=== PATIENT | female | born 1995 | race Caucasian/White ===

== ENCOUNTER 2018-07-29 09:53 | Outpatient (RCR) | payer MEDICAID, BC, SELFPAY ==
--- NOTE | 2018-07-29 09:54 | COCO.VHC ---
New/Renewal Application Status: New Application Submitted?: Yes (pc to [facility]) #:: [phone] Notes:: We called in because Ranjana submitted a application on her own and itr said pending. We called the [facility] and Ranjana is already attached to another application. They deleted out the new application and updated the active one. She does qualify foe dr brooke because she is currently .
--- NOTE | 2018-07-29 09:57 | PDOC.VHC_ITS ---
New/Renewal Application Status: New Application Submitted?: [facility] #:: [phone] Notes:: We called in because Ranjana submitted a application on her own and itr said pending. We called the [facility] and Ranjana is already attached to another application. They deleted out the new application and updated the active one. She does qualify foe dr brooke because she is currently .
== END 2018-08-26 23:59 | disposition home or self-care (01) ==
LOC: COCO 09:53
PROVIDERS: PCP Nurse Practitioner Family; Visit Provider Nurse Practitioner Family
DX: R69 Illness, unspecified (principal)

== ENCOUNTER 2018-08-05 09:39 | Outpatient (CLI) | payer MEDICAID, SELFPAY | END 2018-08-05 09:59 | PROVIDERS: PCP Nurse Practitioner Family; Visit Provider Nurse Practitioner Women's Health | DX: Z32.01 Encounter for pregnancy test, result positive (principal) | CPT/HCPCS: 36415; 84702 ==

== ENCOUNTER 2018-09-02 11:22 | Outpatient (CLI) | payer MEDICAID, SELFPAY ==
[2018-09-02 12:18] LABS: Abs Immature Grans 0.04 k/cumm (0.0-0.09); Absolute Basophil Count 0.03 k/cumm (0.0-0.2); Absolute Eosinophil Count 0.26 k/cumm (0.0-0.7); Absolute Lymphocyte Count 2.87 k/cumm (1.2-3.4); Absolute Monocyte Count 0.91 k/cumm (0.11-0.7); Basophils % 0.3; Eosinophils % 2.4; HCT 39.7 % (36.0-46.0); HGB 14.3 g/dL (12.0-15.5); Immature Grans % 0.4; Lymphocytes % 26.8; Mean Corpuscular Hemoglobin 31.1 pg (27.0-33.0); Mean Corpuscular Volume 86.3 fL (80-95); Mean Platelet Volume 11.8 fL (8.0-11.0); Monocytes % 8.5; Neutrophils % 61.6; Platelet Count 194 x1000/uL (130-400); RBC Distribution Width 12.1 % (11.7-14.6); White Blood Cell Count 10.71 k/cumm (4.4-10.8)
[2018-09-03 10:43] LABS: HIV-1/2 Ag & Ab Screen Negative (NEGAT)
[2018-09-03 11:25] LABS: Hepatitis C Ab w Rflx HCV PCR Negative (NEGAT)
[2018-09-05 10:16] LABS: Hepatitis B Surface Ag Negative (NEGAT)
[2018-09-05 10:55] LABS: Varicella IgG Antibody Positive
[2018-09-05 10:57] LABS: Syphilis Serology (RPR) Negative (Negative)
[2018-09-05 11:14] LABS: Rubella IgG Ab (UVM) Negative
== END 2018-09-02 11:42 ==
PROVIDERS: PCP Nurse Practitioner Family; Visit Provider Advanced Practice Midwife
DX: Z34.91 Encounter for supervision of normal pregnancy, unspecified, first trimester (principal); Z11.59 Encounter for screening for other viral diseases; Z11.4 Encounter for screening for human immunodeficiency virus [HIV]; Z01.84 Encounter for antibody response examination
CPT/HCPCS: 36415; 80055; 86787; 86803; 86850; 86900; 86901; 87340; 87389; 86592; 86762; 86870; 86902

== ENCOUNTER 2018-09-02 11:53 | Outpatient (REF) | payer MEDICAID, SELFPAY ==
[2018-09-02 14:11] LABS: *AMPHETAMINES SCREEN URINE Negative (Negative); *BARBITURATES SCREEN URINE Negative (Negative); *BENZODIAZEPINES SCREEN URINE Negative (Negative); Cannabinoids THC Negative (Negative); Cocaine Screen,Urine Negative (Negative); METHADONE URINE SCREEN POSITIVE (Negative); OPIATES URINE SCREEN Negative (Negative); Tricyclic Antidepressants Negative (Negative)
[2018-09-05 14:23] LABS: Chlamydia Result Negative; GC Result Negative; Specimen Description CERVIX
[2018-09-08 12:05] LABS: Buprenorphine Negative; Norbuprenorphine Negative
== END 2018-09-02 12:13 ==
LOC: LBN 11:53
PROVIDERS: PCP Nurse Practitioner Family; Visit Provider Advanced Practice Midwife
DX: Z34.91 Encounter for supervision of normal pregnancy, unspecified, first trimester (principal); Z11.3 Encounter for screening for infections with a predominantly sexual mode of transmission
CPT/HCPCS: 80307; 87491; 87591; 87086; 87480; 87510; 87660

== ENCOUNTER 2018-09-07 09:55 | Outpatient (CLI) | payer MEDICAID, SELFPAY | END 2018-09-07 10:15 | PROVIDERS: PCP Nurse Practitioner Family; Visit Provider Advanced Practice Midwife | DX: Z34.91 Encounter for supervision of normal pregnancy, unspecified, first trimester (principal) | CPT/HCPCS: 86970; 86860; 86870; 86880; 86885; 86886; 86900; 86905; 86976; 86978 ==

== ENCOUNTER 2018-09-09 13:01 | Outpatient (CLI) | payer MEDICAID, SELFPAY ==
--- NOTE | 2018-09-09 12:30 | DI.US_ITS ---
Many abnormalities cannot be diagnosed. A normal exam does not exclude a congenital anomaly. Radiology No. LMP: 06/21/18 Exam Date: 09/09/18 [facility] wks days on EDC ([facility]) Confirmed: HISTORY: LLQ PAIN, ? CYST, EARLY ,Z34.91 PREDICTED GESTATIONAL AGE NUMBER 11.3 weeks with a range of 10.3 week to 12.3 weeks. 1 Determined by___1STUS___LMP___HISTORY Info. pertaining to fetus # PLACENTA PRESENTATION Grade 0 Cephalic___ Anterior___Posterior_X__ Breech____ Right Left__X Transverse(head right___ Fundal___Low-lying___Previa___ Transverse(head left___ Varying__X____ BIOMETRY AMNIOTIC FLUID BPD: mm weeks Normal HC: mm weeks AC: mm weeks FL: mm weeks AMNIOTIC FLUID INDEX >26 WK CRL: 53 mm 12.0 weeks Cisterna Magna: mm CI: RUQ: LUQ Cerebellum: cm EFW: grams Percentile RLQ: LLQ YOLK SAC=4 MM Total: cms Composite AGE= 12 wks EDC by US___03/24/19 BIOPHYSICAL PROFILE ANATOMY IDENTIFIED Rate: 160 BPM___ LVOT: RVOT: Amniotic Fluid(>2cms)____ Stomach: Kidneys: Respirations (>30 secs) Bladder: Post. Fossa: Body Flex/Extension 3 vessel cord: Ventricles: cord insertion: Lips:____ Extremity Flex/Extension spinal morphology: Nose: Total Score= Palate: NS=not seen There is a single intrauterine gestation. The crown rump length measurements correspond to 12 weeks 0 days. A yolk sac is seen. cardiac activity is demonstrated at 160 beats per minute. The ovaries have a normal appearance. There is no evidence of ovarian cyst. A trace amount of fluid is seen around the left ovary. There is no evidence of torsion. IMPRESSION: Intrauterine gestation measuring 12 weeks 0 days. No evidence of ovarian cyst, mass or torsion.
== END 2018-09-09 13:21 ==
PROVIDERS: PCP Nurse Practitioner Family; Visit Provider Advanced Practice Midwife
DX: Z34.91 Encounter for supervision of normal pregnancy, unspecified, first trimester (principal); R10.32 Left lower quadrant pain
CPT/HCPCS: 76801

== ENCOUNTER 2018-09-30 13:15 | Outpatient (REF) | payer MEDICAID, SELFPAY | END 2018-09-30 13:35 | LOC: LBN 13:15 | PROVIDERS: PCP Nurse Practitioner Family; Visit Provider Advanced Practice Midwife | DX: N89.8 Other specified noninflammatory disorders of vagina (principal) | CPT/HCPCS: 87480; 87510; 87660 ==

== ENCOUNTER 2018-10-21 00:13 | Outpatient (CLI) | payer MEDICAID, SELFPAY ==
--- NOTE | 2018-10-21 12:45 | DI.US_ITS ---
SYMPTOM/DIAGNOSIS: ROUTINE FSUSG, Z334.90 OBSTETRICAL ULTRASOUND: Routine examination. There is a single living intrauterine gestation with estimated sonographic age of 17 weeks 6 days. No abnormalities were identified, however, the spine was not well seen during the examination. The patient is scheduled to return on October 28 2018 to complete anatomic evaluation of the spine. The placenta is posterior without evidence of previa. heart rate is 153 BPM. Amniotic fluid visually appears within normal limits. IMPRESSION: Single living intrauterine gestation. Estimated sonographic age is 17 weeks 6 days. The patient is scheduled to return on 10/28/2018 for spine visualization. Many abnormalities cannot be diagnosed. A normal exam does not exclude a congenital anomaly. Radiology No. [id number] LMP: 06/21/18 Exam Date: 10/21/18 [facility] wks on [facility] ([facility]) 03/28/2019 Confirmed: HISTORY: SURVEY PREDICTED GESTATIONAL AGE NUMBER 17 +3 weeks with a range of 16 +3 week to 18 +3 weeks. 1 Determined by___1STUS___LMP___HISTORY Info. pertaining to fetus # PLACENTA PRESENTATION Grade I Cephalic___ Anterior___Posterior_XX__ Breech____ Right Left Transverse(head right___ Fundal___Low-lying___Previa___ Transverse(head left___ Varying___XX___ BIOMETRY AMNIOTIC FLUID BPD: 39 mm 17 +6 weeks Normal HC: 147 mm 17 +6 weeks AC: 125 mm 18 +1 weeks FL: 25 mm 17 +4 weeks AMNIOTIC FLUID INDEX >26 WK CRL: mm weeks Cisterna Magna: 1.9 mm CI: 78.3 RUQ: LUQ Cerebellum: 1.7 cm EFW: 214 grams 74% Percentile RLQ: LLQ Total: cms Composite AGE= 17 +6 wks EDC by US__ 03/25/19 BIOPHYSICAL PROFILE ANATOMY IDENTIFIED SCORE 0/2 Heart: 4-Chamber_X__Rate:BPM___153 bpm__ LVOT:___X RVOT:___X Amniotic Fluid(>2cms)____ Stomach:__X Kidneys:____X___ Respirations (>30 secs) Bladder: X___ Post. Fossa:___X Body Flex/Extension 3 vessel cord:__X Ventricles:___X cord insertion:__X___ Lips:__X__ Extremity Flex/Extension spinal morphology:__NOT WELL SEEN__Nose: X Total Score= Palate:__X NS=not seen
[2018-10-25 15:30] LABS: AFP 28.3 ng/mL; GA used in risk estimate Scan estimate; INHIBIN 190 pg/mL; IVF Pregnancy No; Initial or repeat testing Initial testing; Insulin dependent diabetes No; Maternal Weight 148 lbs; Number of Fetuses 1; Physician Phone Number 802-748-7300; Prev Down(T21)/Trisomy Pregnan No; Prev Pregnancy w/NTD No; RECOMMENDED FOLLOW UP None.; Results Summary Normal risk; hCG, TOTAL 46.3 IU/mL; hCG, TOTAL MoM 2.42 MoM; uE3 1.55 ng/mL; uE3 MoM 1.29 MoM
== END 2018-10-21 00:33 ==
PROVIDERS: PCP Nurse Practitioner Family; Visit Provider Advanced Practice Midwife
DX: Z34.92 Encounter for supervision of normal pregnancy, unspecified, second trimester (principal); Z36.89 Encounter for other specified antenatal screening; Z01.84 Encounter for antibody response examination
CPT/HCPCS: 36415; 76805; 81511; 86970; 86860; 86870; 86880; 86885; 86886; 86900; 86976; 86978

== ENCOUNTER 2018-10-28 00:11 | Outpatient (CLI) | payer MEDICAID, SELFPAY ==
--- NOTE | 2018-10-28 12:00 | DI.US_ITS ---
SYMPTOM/DIAGNOSIS: F/U SPINE OBSTETRICAL ULTRASOUND: 10/28 Limited ultrasound was performed to evaluate spinal morphology of the fetus, not well visualized on initial examination of 10/21/18 On today's examination evaluation of the spine is unremarkable completing a negative anomaly screen. Many abnormalities cannot be diagnosed. A normal exam does not exclude a congenital anomaly. Radiology No. [id number] LMP: Exam Date: 10/28/18 [facility] wks days on EDC ([facility]) Confirmed: HISTORY: f/u spine. images not seen well on survey PREDICTED GESTATIONAL AGE NUMBER weeks with a range of week to weeks. 1 Determined by___1STUS___LMP___HISTORY Info. pertaining to fetus # PLACENTA PRESENTATION Grade I Cephalic__X_ Anterior___Posterior__X_ Breech____ Right Left Transverse(head right___ Fundal___Low-lying___Previa___ Transverse(head left___ Varying BIOMETRY AMNIOTIC FLUID BPD: mm weeks Normal HC: mm weeks Oligo Polyhydramnios AC: mm weeks FL: mm weeks AMNIOTIC FLUID INDEX >26 WK CRL: mm weeks Cisterna Magna: mm CI: RUQ: LUQ Cerebellum: cm EFW: grams Percentile RLQ: LLQ Total: cms Composite AGE= wks EDC by US BIOPHYSICAL PROFILE ANATOMY IDENTIFIED SCORE 0/2 Heart: 4-Chamber___Rate:BPM__135 BPM___ LVOT: RVOT: Amniotic Fluid(>2cms)____ Stomach: Kidneys: Respirations (>30 secs) Bladder: Post. Fossa: Body Flex/Extension 3 vessel cord: Ventricles: cord insertion: Lips:____ Extremity Flex/Extension spinal morphology:__XX Nose: Total Score= Palate: NS=not seen
== END 2018-10-28 00:31 ==
PROVIDERS: PCP Nurse Practitioner Family; Visit Provider Advanced Practice Midwife
DX: Z34.92 Encounter for supervision of normal pregnancy, unspecified, second trimester (principal); Z36.89 Encounter for other specified antenatal screening
CPT/HCPCS: 76815

== ENCOUNTER 2018-11-23 00:31 | Outpatient (RCR) | payer MEDICAID, SELFPAY | END 2018-11-24 23:59 | disposition home or self-care (01) | LOC: INF 00:31 | PROVIDERS: PCP Nurse Practitioner Family; Visit Provider Advanced Practice Midwife | DX: O26.893 Other specified pregnancy related conditions, third trimester (principal); R76.0 Raised antibody titer | CPT/HCPCS: 36415; 86970; 86860; 86870; 86880; 86885; 86886; 86900; 86976; 86978 ==

== ENCOUNTER 2018-12-21 02:08 | Outpatient (RCR) | payer MEDICAID, SELFPAY | END 2018-12-25 23:59 | disposition home or self-care (01) | LOC: INF 02:08 | PROVIDERS: PCP Nurse Practitioner Family; Visit Provider Advanced Practice Midwife | DX: Z34.90 Encounter for supervision of normal pregnancy, unspecified, unspecified trimester (principal) | CPT/HCPCS: 36415; 86970; 86860; 86870; 86880; 86885; 86886; 86900; 86976; 86978 ==

== ENCOUNTER 2019-01-20 07:51 | Outpatient (RCR) | payer MEDICAID, SELFPAY ==
[2019-01-20 16:10] LABS: Abs Immature Grans 0.03 k/cumm (0.0-0.09); Absolute Eosinophil Count 0.18 k/cumm (0.0-0.7); Absolute Lymphocyte Count 2.44 k/cumm (1.2-3.4); Absolute Monocyte Count 1.06 k/cumm (0.11-0.7); Basophils % 0.3; Eosinophils % 1.5; HCT 33.6 % (36.0-46.0); Immature Grans % 0.3; Lymphocytes % 20.6; Mean Corp. HGB Concentration 35.7 g/dL (32.0-36.0); Mean Corpuscular Hemoglobin 31.8 pg (27.0-33.0); Mean Corpuscular Volume 89.1 fL (80-95); Mean Platelet Volume 11.1 fL (8.0-11.0); Monocytes % 8.9; Neutrophils % 68.4; Platelet Count 180 x1000/uL (130-400); RBC 3.77 m/cumm (4.00-5.20); White Blood Cell Count 11.86 k/cumm (4.4-10.8)
[2019-01-20 16:11] LABS: Absolute Basophil Count 0.04 k/cumm (0.0-0.2); Absolute Neutrophil Count 8.11 k/cumm (1.2-6.7)
[2019-01-20 16:12] LABS: Glucose,1 Hr (Glucola) 101 mg/dL (80-140)
== END 2019-01-24 23:59 | disposition home or self-care (01) ==
LOC: INF 07:51
PROVIDERS: PCP Nurse Practitioner Family; Visit Provider Advanced Practice Midwife
DX: O36.0920 Maternal care for other rhesus isoimmunization, second trimester, not applicable or unspecified (principal)
CPT/HCPCS: 36415; 82950; 86970; 85025; 86860; 86870; 86880; 86885; 86886; 86900; 86976; 86978

== ENCOUNTER 2019-02-03 02:20 | Outpatient (CLI) | payer MEDICAID, SELFPAY ==
--- NOTE | 2019-02-03 10:54 | DI.US_ITS ---
SYMPTOMS/DIAGNOSIS: SIZE < DATES OB ULTRASOUND: Predicted Gestational Age: Indication/History: 32+3 Wks Range: 31+3 to 33+3 Prior US done on: 10/21/18 Determined by: First US LMP X History EDC by prior US: 03/25/19 For multiple gestations: Baby PLACENTA: Grade: II Location: Anterior Posterior PRESENTATION: RT LT LOW LYING PREVIA Cephalic X Trans (Head RT LT ) Varied Breech BIOMETRY: Anatomy Identified: BPD: 84 mm 33+6 wks 4 chamber Heart Heart Rate 122 BPM HC: 296 mm 32+5 wks LVOT Post Fossa AC: 285 mm 32+3 wks RVOT Ventricles FL: 66 mm 34 wks Stomach Nose Bladder Lips Cisterna Magna: mm CI: Kidneys Palate Cerebellum: mm 3 vessel cord Spine EFW: 2115 grms 61% Cord Insertion NS= not seen Composite Age (US) 33+2 wks Many abnormalities cannot be diagnosed. A normal exam does not exclude congenital abnormality. EDC by US 03/22/19 Amniotic Fluid Index: Normal COMMENTS: 4 pounds 1 ounce RUQ: 0.9 LUQ: 2.6 RLQ: 2.8 LLQ: 1.7 Total: 8.0 cm Biophysical Profile: Score 0/2 RAKESH (>2cm) Respirations (>30 sec) Body flexion/extension Extremity flexion/extension TOTAL SCORE OB ultrasound was performed utilizing third trimester protocol. biometry is consistent with a gestational age of 33 weeks 2 days and an EDC of 03/22/19. Placenta is posterior with no evidence of placenta previa. There is a normal quantity of amniotic fluid visually and the RAKESH is 8. cardiac activity observed at a rate of 122 bpm. The estimated weight is 2115 g, which is at the 61st percentile for predicted gestational age.
== END 2019-02-03 02:40 ==
PROVIDERS: PCP Nurse Practitioner Family; Visit Provider Advanced Practice Midwife
DX: F11.20 Opioid dependence, uncomplicated (principal); O99.323 Drug use complicating pregnancy, third trimester; O26.843 Uterine size-date discrepancy, third trimester
CPT/HCPCS: 76816

== ENCOUNTER 2019-02-24 01:57 | Outpatient (RCR) | payer MEDICAID, SELFPAY | END 2019-02-24 23:59 | disposition home or self-care (01) | LOC: INF 01:57 | PROVIDERS: PCP Nurse Practitioner Family; Visit Provider Advanced Practice Midwife | DX: O36.092 Maternal care for other rhesus isoimmunization, second trimester (principal); O26.843 Uterine size-date discrepancy, third trimester | CPT/HCPCS: 36415; 76816; 86970; 86860; 86870; 86880; 86885; 86886; 86900; 86976; 86978 ==

== ENCOUNTER 2019-02-24 09:02 | Outpatient (CLI) | payer MEDICAID, SELFPAY ==
--- NOTE | 2019-02-24 10:00 | DI.US_ITS ---
SYMPTOMS/DIAGNOSIS: S < D AT 35 WKS, , Z34.90 OB ULTRASOUND: There is a single living intrauterine gestation. Estimated sonographic age is 35 weeks 0 days. Of note the abdominal circumference measurement is 2 weeks 1 day behind the other biometry results. Estimated weight is 2395 grams which is in the 19th percentile. The fetus is in the cephalic presentation. heart rate is 114 bpm. Amniotic fluid index is 14.0 cm which is within normal limits. Visually the amniotic fluid appears within normal limits. The placenta is posterior without evidence of previa. IMPRESSION: Single living intrauterine gestation. Estimated sonographic age is 35 weeks. Please see the above discussion for complete details. Predicted Gestational Age: Indication/History: 35+3 Wks Range: 34+3 Wks to 36+3 Wks Prior US done on: 02/03/19 Determined by: First US LMP History X EDC by prior US: 03/22/19 For multiple gestations: Baby PLACENTA: Grade: II Location: Anterior Posterior X PRESENTATION: RT LT LOW LYING PREVIA Cephalic X Trans (Head RT LT ) Varied Breech BIOMETRY: Anatomy Identified: BPD: 89 mm 35+6 wks 4 chamber Heart X Heart Rate 114 BPM HC: 318 mm 35+6 wks LVOT Post Fossa AC: 293 mm 33+2 wks RVOT Ventricles FL: 68 mm 35+0 wks Stomach Nose Bladder Lips Cisterna Magna: mm CI: 83 Kidneys Palate Cerebellum: mm 3 vessel cord Spine EFW: 2395 grms 19% Cord Insertion NS= not seen Composite Age (US) 35+0 wks Many abnormalities cannot be diagnosed. A normal exam does not exclude congenital abnormality. EDC by US 03/31/19 Amniotic Fluid Index: Normal COMMENTS: RUQ: 5.24 LUQ: 2.85 RLQ: 2.89 LLQ: 2.99 Total: 14.0 cm Biophysical Profile: Score 0/2 RAKESH (>2cm) Respirations (>30 sec) Body flexion/extension Extremity flexion/extension TOTAL SCORE
== END 2019-02-24 09:22 ==
PROVIDERS: PCP Nurse Practitioner Family; Visit Provider Advanced Practice Midwife
DX: Z34.93 Encounter for supervision of normal pregnancy, unspecified, third trimester (principal); O26.843 Uterine size-date discrepancy, third trimester
CPT/HCPCS: 76816

== ENCOUNTER 2019-03-03 13:33 | Outpatient (CLI) | payer MEDICAID, SELFPAY ==
[2019-03-03 16:04] LABS: *AMPHETAMINES SCREEN URINE Negative (Negative); *BARBITURATES SCREEN URINE Negative (Negative); *BENZODIAZEPINES SCREEN URINE Negative (Negative); Cannabinoids THC Negative (Negative); Cocaine Screen,Urine Negative (Negative); METHADONE URINE SCREEN POSITIVE (Negative); OPIATES URINE SCREEN Negative (Negative)
[2019-03-03 16:31] LABS: Tricyclic Antidepressants Negative (Negative)
[2019-03-09 12:38] LABS: Buprenorphine Negative; Norbuprenorphine Negative
== END 2019-03-03 13:53 ==
PROVIDERS: PCP Nurse Practitioner Family; Visit Provider Advanced Practice Midwife
DX: O36.0930 Maternal care for other rhesus isoimmunization, third trimester, not applicable or unspecified (principal); O26.843 Uterine size-date discrepancy, third trimester; Z3A.36 36 weeks gestation of pregnancy
CPT/HCPCS: 80307; 59025; 87081

== ENCOUNTER 2019-03-06 15:10 | Outpatient (CLI) | payer MEDICAID, SELFPAY | END 2019-03-06 15:30 | PROVIDERS: PCP Nurse Practitioner Family; Visit Provider Advanced Practice Midwife | DX: O26.843 Uterine size-date discrepancy, third trimester (principal); Z3A.36 36 weeks gestation of pregnancy | CPT/HCPCS: 59025 ==

== ENCOUNTER 2019-06-08 11:09 | Outpatient (REF) | payer MEDICAID, SELFPAY ==
[2019-06-09 12:20] LABS: Chlamydia Result Negative; GC Result Negative; Specimen Description CERVIX
== END 2019-06-08 11:29 ==
LOC: LBN 11:09
PROVIDERS: PCP Nurse Practitioner Family; Visit Provider Advanced Practice Midwife
DX: Z11.3 Encounter for screening for infections with a predominantly sexual mode of transmission (principal); Z30.9 Encounter for contraceptive management, unspecified
CPT/HCPCS: 87491; 87591

== ENCOUNTER 2019-12-18 15:05 | Emergency (ER) | payer MEDICAID, SELFPAY ==
[2019-12-18 15:10] VITALS: BP 142/89; PULSE 92; TEMP 37.4; O2SAT 99
--- NOTE | 2019-12-18 15:15 | DI.US_ITS ---
EXAM: US ABDOMEN CLINICAL HISTORY: right upper abdominal pain TECHNIQUE: Ultrasound performed using standard protocol. COMPARISON: US OB 2-3 trimester from 02/24/2019 FINDINGS: Abdominal ultrasound was performed according to the usual protocol. Liver is unremarkable in appeara nce. No evidence of cholelithiasis or biliary dilatation. Negative sonographic Matt sign. Pancre as grossly unremarkable as visualized. Spleen appears normal. The kidneys are unremarkable in appea carito with no evidence of hydronephrosis or nephrolithiasis. Abdominal aorta and IVC are of normal d iameter. IMPRESSION: Negative abdominal ultrasound. DATA REPOSITORY:
--- NOTE | 2019-12-18 15:21 | W.ED.GENAD ---
Discharge Plan Disposition Patient Disposition: HOME Condition: Stable Discharge Details Chief Complaint: Abd Prob Clinical Impression: Abdominal pain Primary Care Provider: Tommy Recio ED Provider: Robert Larkin Home Meds and New Rx's Prescriptions: Continued ParaGard T 380A 380 square mm intrauterine device 1 device IY ONCE RF: 0 norethindrone ac-eth estradiol [Loestrin 1.5/30 (21)] 1.5-30 mg-mcg tablet 1 tab PO DAILY Qty: 28 RF: 11 methadone [Dolophine] 10 mg tablet 28 mg PO DAILY RF: 0 Discharge Instructions Instructions: Abdominal Pain (ED) Additional Instructions: your blood work and ultrasound did not show any acute findings I placed you on our follow up list to see your primary care provider within a week if you have significant worsening pain, fevers or feel more ill return to the emergency department you can take 1000mg tylenol and 600mg ibuprofen every 6 hours for pain as needed Medical Decision Making 24 yo female with no prior abdominal surgeries comes in with complaint of constant worsening right upper abdominal pain radiating to the back without fevers, vomit, chest pain. Has never had pain like this in the past. On abdominal exam abdomen is not distended and has only pain in right upper quadrant and does have a positive wise's sign , no lower abdominal tenderness, vaginal bleeding or d/c. Given location of pain will obtain labs including lipase, lfts and start with abdominal u/s to evaluate for cholecysititis vs pancreatitis. HAs no lower abdominal tenderness and so doubt entities such as appendicitis. pt's labs unremarkable, had false positive urine poc hcg and negative serum hcg. U/s shows no acute findings. Her pain is gone after one dose of toradol and has no abdominal tenderness anymore or wise's sign. Unclear etiology but given her resolved pain and reassuring exam feel she can f/u with pcp and return precautions given Differential Diagnosis Differential Diagnosis: pancreatitis, cholecystitis, biliary colic Imaging Data Radiologic Study: Attestation: I personally reviewed and interpreted this imaging study as follows: Imaging: Ultrasound Radiologist's impression: no acute findings Lab Data Lab results reviewed: Yes I reviewed the patient's lab results. HPI General Mode of arrival: ambulatory. Date/Time Provider Initiated Documentation: 12/18/19 15:14. Limitations to Documentation: no limitations. Information obtained by: patient. History of Present Illness 24 year old F presents to the emergency department with the chief complaint of abdominal pain, described as moderate, and it has been constant. No relieving factors improve symptom(s), No exacerbating factors reported . Patient did receive the following treatments prior to arrival, none Related Data Home Medications Medication Instructions Recorded Confirmed copper 380 square mm intrauterine 1 device IY ONCE 08/07/19 12/18/19 device methadone 10 mg tablet 28 mg PO DAILY tab 08/07/19 12/18/19 norethindrone acetate 1.5 1 tab PO DAILY #28 tab 08/07/19 12/18/19 mg-ethinyl estradiol 30 mcg tablet Previous Rx's Medication Instructions Recorded norethindrone acetate 1.5 1 tab PO DAILY #28 tab 08/07/19 mg-ethinyl estradiol 30 mcg tablet Allergies Allergy/AdvReac Type Severity Reaction Status Date / Time codeine AdvReac Intermediate Agitation Unverified 12/18/19 17:28 General Stated Complaint: Abd Prob DIONNA: 3 Review of Systems All systems reviewed & are unremarkable except as noted in HPI and below Constitutional Constitutional: Denies chills and Denies fever(s) Cardiovascular Cardiovascular: Denies chest pain and Denies dyspnea Respiratory Respiratory: Denies cough and Denies dyspnea Gastrointestinal Gastrointestinal: Denies nausea and Denies vomiting Musculoskeletal Musculoskeletal: Denies joint swelling Psychiatric Psychiatric: Denies depression PFSH Medical History 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 (Inactive) Delivery normal (Resolved) First trimester (Acute) History of drug abuse in remission (Acute) History of tobacco abuse (Chronic) 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 (Acute) Oral contraceptive pill surveillance (Inactive 10/04/14) Presence of of copper intrauterine contraceptive device (Acute) Social History Smoking/Tobacco Use Status: Current every day Tobacco Type: cigarettes Counseling given: provider counseling Alcohol Intake: former Drug use: Never Substance use type: former substance user Date of last use: 2 years, heroin, painkillers and IV drugs Do you feel safe at home: Yes Do you feel safe in your relationship?: Yes Female Reproductive History Menstrual control method: none History History 3 Para 2 Hx # Term Pregnancies 2 Multiple births 0 Hx # Pregnancies 0 Ectopic pregnancies 0 AB induced 1 Hx Number of Living Children 2 AB spontaneous 0 Past Pregnancies Del. Date GA/Weeks # Outcome Route Wgt Sex Labor Lgth Anesthesia Location Prov Compl 02/27/14 40 No Successful vaginal 4.026 kg Female 10 [facility] [place] 03/15/19 38 No Successful vaginal 3.062 kg Female Delivery Date: 02/27/14 wanted an epidural but was told it was too late [facility] Delivery Date: 03/15/19 delivered @ [facility] [place] [facility] Her LPN Exam Const General: no acute distress Orientation: alert HENIN Head: normal to inspection Ears: external ears normal General nose exam: external nose normal Mouth: moist mucous membranes Eyes General: appearance normal, both eyes and all related structures Neck Neck: normal visual inspection Resp Effort & Inspection: normal respiratory effort and able to speak in complete sentences Cardio Rate: regular rate GI Palpation: soft and tender Skin General skin exam: no rashes or lesions noted Neuro General: patient alert and patient oriented x3 Extrem General: normal to inspection Psych Mental Status: mental status grossly normal Course Vital Signs Vital signs: Vital Signs Temperature 37.4 C 12/18/19 15:10 Pulse 92 H 12/18/19 15:10 Blood Pressure 142/89 H 12/18/19 15:10 Pulse Oximetry 99 12/18/19 15:10 Temperature 37.4 C 12/18/19 15:10 Temperature Source Temporal Artery Scan 12/18/19 15:10 Pulse 92 H 12/18/19 15:10 Respiratory Effort Non-Labored 12/18/19 15:14 Blood Pressure 142/89 H 12/18/19 15:10 Blood Pressure Position Sitting 12/18/19 15:10 Pulse Oximetry 99 12/18/19 15:10 Oxygen Delivery Method Room Air 12/18/19 15:10 Oxygen Flow Rate 0 12/18/19 15:10 Pain Level 8 12/18/19 15:10
[2019-12-18 15:25] LABS: Bilirubin Negative (Negative); Blood Negative (Negative); Clarity Clear (Clear); Glucose Negative (Negative); Ketones Negative (Negative); Leukocyte Esterase Negative (Negative); Nitrite Negative (Negative); Specific Gravity >= 1.030 (1.005-1.025); Urobilinogen 0.2 EU/dL (Up TO 0.2)
[2019-12-18 15:33] LABS: Bacteria Few HPF (Negative); C & S Indicated? No; Crystals Negative HPF (Negative); Epithelial Cells Many HPF (Negative); Mucus Trace (Negative); RBC 0-2 HPF (0-2); WBC Negative HPF (0-5)
[2019-12-18] MEDS: Ketorolac 15 MG/ML VIAL IVP (16:36)
[2019-12-18] MEDS: Normal Saline 1,000 ML 1000 ML IV (16:37)
--- NOTE | 2019-12-18 16:45 | DI.VRAD_ITS ---
PROCEDURE INFORMATION: Exam: US Abdomen Complete Exam date and time: 12/18/2019 4:28 PM Age: 24 years old Clinical indication: Other: Ruq pain TECHNIQUE: Imaging protocol: Real-time ultrasound of the abdomen with image documentation. COMPARISON: US RENAL ULTRASOUND(P) 12/22/2013 3:45 PM FINDINGS: Liver: Normal. No mass. Gallbladder: Normal. No gallstones. There is no gallbladder wall thickening. Common bile duct: Normal. No stones. No dilation. Pancreas: Visualized pancreas is unremarkable. Right kidney: Normal. No mass. No hydronephrosis. Left kidney: Normal. No mass. No hydronephrosis. Spleen: Normal. No splenomegaly. Aorta: Normal. No aneurysm. Inferior vena cava: Normal. IMPRESSION: No acute findings. Dictated and Authenticated by: Vishal Meza MD. Ordering:KEVIN Jones MD
[2019-12-18 16:54] LABS: Abs Immature Grans 0.03 k/cumm (0.0-0.09); Absolute Basophil Count 0.03 k/cumm (0.0-0.2); Absolute Eosinophil Count 0.08 k/cumm (0.0-0.7); Absolute Lymphocyte Count 2.19 k/cumm (1.2-3.4); Absolute Monocyte Count 1.17 k/cumm (0.11-0.7); Absolute Neutrophil Count 9.19 k/cumm (1.2-6.7); Basophils % 0.2; Eosinophils % 0.6; HCT 41.9 % (36.0-46.0); HGB 14.6 g/dL (12.0-15.5); Immature Grans % 0.2 %; Lymphocytes % 17.3; Mean Corp. HGB Concentration 34.8 g/dL (32.0-36.0); Mean Corpuscular Hemoglobin 28.5 pg (27.0-33.0); Mean Corpuscular Volume 81.8 fL (80-95); Mean Platelet Volume 10.7 fL (8.0-11.0); Monocytes % 9.2; Neutrophils % 72.5; Platelet Count 303 x1000/uL (130-400); RBC 5.12 m/cumm (4.00-5.20); RBC Distribution Width 12.8 % (11.7-14.6); White Blood Cell Count 12.67 k/cumm (4.4-10.8)
[2019-12-18 17:11] LABS: ALT 15 U/L (14-59); AST 16 U/L (15-37); Albumin 3.8 g/dL (3.4-5.0); Alkaline Phosphatase 95 U/L (46-116); Anion Gap 8.6 mmol/L (3-11); BUN 18 mg/dL (7-18); Bilirubin, Direct 0.11 mg/dL (0.00-0.20); Bilirubin, Total 0.4 mg/dL (0.2-1.0); CO2 26.4 mmol/L (21.0-32.0); CREATININE 1.03 mg/dL (0.55-1.02); Calcium 9.4 mg/dL (8.5-10.1); Chloride 103 mmol/L (98-107); Glucose 89 mg/dL (74-106); Lipase 75 U/L (73-393); Potassium 3.6 mmol/L (3.5-5.1); Sodium 138 mmol/L (136-145); Total Protein 7.7 g/dL (6.4-8.2)
[2019-12-18 17:24] VITALS: BP 122/70; PULSE 65; RESP 14; TEMP 36.6; O2SAT 100
[2019-12-18 17:25] LABS: HCG Quant, Pregnancy < 1 mIU/mL (1-3)
[2019-12-18 18:03] VITALS: BP 135/87; PULSE 60; TEMP 36.6; O2SAT 100
--- NOTE | 2019-12-19 07:37 | NUR.NOTE ---
Referral faxed to [facility].Nursing Note:
== END 2019-12-18 18:21 | disposition home or self-care (01) ==
PROVIDERS: Emergency Provider Emergency Medicine; PCP Nurse Practitioner Family
DX: R10.11 Right upper quadrant pain (principal); Z97.5 Presence of (intrauterine) contraceptive device
CPT/HCPCS: 36415; 80053; 81025; 83690; 96361; 96374; 99284; 76700; 81003; 81015; 82248; 84702; 85025; J1885

== ENCOUNTER 2020-06-21 15:03 | Outpatient (REF) | payer MEDICAID, SELFPAY ==
[2020-06-24 14:38] LABS: Chlamydia Result Positive (Negative); GC Result Negative (Negative)
== END 2020-06-21 15:23 ==
LOC: LBN 15:03
PROVIDERS: PCP Nurse Practitioner Family; Visit Provider Advanced Practice Midwife
DX: N93.0 Postcoital and contact bleeding (principal); N89.8 Other specified noninflammatory disorders of vagina
CPT/HCPCS: 87491; 87591; 87480; 87510; 87660

== ENCOUNTER 2020-08-20 14:56 | Outpatient (REF) | payer MEDICAID, SELFPAY ==
[2020-08-23 14:29] LABS: GC Result Negative (Negative)
[2020-08-23 15:11] LABS: Chlamydia Result Positive (Negative)
== END 2020-08-20 15:16 ==
LOC: LBN 14:56
PROVIDERS: PCP Nurse Practitioner Family; Visit Provider Advanced Practice Midwife
DX: Z86.19 Personal history of other infectious and parasitic diseases (principal); Z11.3 Encounter for screening for infections with a predominantly sexual mode of transmission
CPT/HCPCS: 87491; 87591; 87480; 87510; 87660

== ENCOUNTER 2020-11-15 18:01 | Outpatient (REF) | payer MEDICAID, SELFPAY ==
[2020-11-18 15:32] LABS: Chlamydia Result Negative (Negative); GC Result Negative (Negative)
== END 2020-11-15 18:02 | disposition home or self-care (01) ==
LOC: LBN 18:01
PROVIDERS: PCP Nurse Practitioner Family; Visit Provider Advanced Practice Midwife
DX: Z86.19 Personal history of other infectious and parasitic diseases (principal)
CPT/HCPCS: 87491; 87591; 87480; 87510; 87660

== ENCOUNTER 2021-07-03 14:35 | Outpatient (REF) | payer MEDICAID, SELFPAY | END 2021-07-03 14:36 | disposition home or self-care (01) | LOC: LBN 14:35 | PROVIDERS: PCP Nurse Practitioner Family; Visit Provider Advanced Practice Midwife | DX: N89.8 Other specified noninflammatory disorders of vagina (principal) | CPT/HCPCS: 87480; 87510; 87660 ==

== ENCOUNTER 2021-11-28 19:00 | Emergency (ER) | payer MEDICAID, SELFPAY ==
[2021-11-28] VITALS (34 sets, daily range): BP systolic 103–186; BP diastolic 53–101; PULSE 43–116; RESP 11–35; TEMP 36.1; O2SAT 96–100
--- NOTE | 2021-11-28 19:15 | RT.EKG_ITS ---
APPROVED REPORT Exam: Resting ECG Reason for Exam: od Patient Location: E HR:74 bpm ECG Measurements Heart Rate 74 AXIS DC 123 P 65 QRSd 73 QRS 69 QT 406 T 49 QTc 452 Conclusion Sinus rhythm...normal P axis, V-rate 60- 99 sinus rhythm, normal axis, non ischemic
[2021-11-28 19:25] LABS: Abs Immature Grans 0.01 10^3/uL (0.0-0.06); Absolute Basophil Count 0.06 10^3/uL (0.0-0.2); Absolute Eosinophil Count 0.18 10^3/uL (0.0-0.7); Absolute Lymphocyte Count 2.98 10^3/uL (1.2-3.4); Absolute Monocyte Count 0.65 10^3/uL (0.1-0.8); Absolute Neutrophil Count 4.66 10^3/uL (1.2-6.7); Basophils % 0.7; Eosinophils % 2.1; HCT 44.1 % (36.0-46.0); HGB 15.5 g/dL (11.2-15.7); Immature Grans % 0.1; Lymphocytes % 34.9; MCH 30.9 pg (27.0-33.0); MCHC 35.1 % (32.0-36.0); MCV 87.8 fL (80-95); MPV 10.6 fL (8.0-11.0); Monocytes % 7.6; Neutrophils % 54.6; Nucleated RBC 0 %; Platelet Count 341 10^3/uL (130-400); RBC 5.02 10^6/uL (3.93-5.22); RDW 11.8 % (11.7-14.6); WBC 8.54 10^3/uL (4.4-10.8)
[2021-11-28] MEDS: Ondansetron 4 MG/2 ML VIAL IVP (19:36)
[2021-11-28] MEDS: Normal Saline 1,000 ML 1000 ML IV (19:36)
[2021-11-28 19:47] LABS: ALT 15 U/L (14-59); AST 16 U/L (15-37); Alkaline Phosphatase 72 U/L (46-116); Anion Gap 14.3 mmol/L (3-11); BUN 10 mg/dL (7-18); Bilirubin, Total 0.6 mg/dL (0.2-1.0); CO2 19.7 mmol/L (21.0-32.0); CREATININE 1.1 mg/dL (0.55-1.02); Calcium 9.3 mg/dL (8.5-10.1); Chloride 103 mmol/L (98-107); Estimated GFR 59.14 (mL/min/1.73m2); Glucose 201 mg/dL (74-106); Potassium 3.3 mmol/L (3.5-5.1); Sodium 137 mmol/L (136-145)
[2021-11-28 19:57] LABS: Bilirubin Negative (Negative); Blood Negative (Negative); Clarity Clear (Clear); Glucose Negative (Negative); Ketones Negative (Negative); Leukocyte Esterase Negative (Negative); Nitrite Negative (Negative); Urobilinogen 0.2 EU/dL (Up TO 0.2)
[2021-11-28 20:04] LABS: *AMPHETAMINES SCREEN URINE Negative (Negative); *BARBITURATES SCREEN URINE Negative (Negative); *BENZODIAZEPINES SCREEN URINE Negative (Negative); Cannabinoids THC Negative (Negative); Cocaine Screen,Urine Positive (Negative); METHADONE URINE SCREEN Negative (Negative); OPIATES URINE SCREEN Negative (Negative)
[2021-11-28 20:08] LABS: Tricyclic Antidepressants Negative (Negative)
[2021-11-28 20:34] LABS: Bacteria Negative HPF (Negative); C & S Indicated? No; Casts 3-5 Hyaline LPF (Negative); Crystals Negative HPF (Negative); Epithelial Cells Few HPF (Negative); Mucus Trace (Negative); RBC 0-2 HPF (0-2); WBC Negative HPF (0-5)
--- NOTE | 2021-11-28 22:27 | ED.GENADUL_ITS ---
Discharge Plan Disposition Patient Disposition: HOME Condition: Improving Discharge Details Chief Complaint: OD/Poison Clinical Impression: Opioid overdose Primary Care Provider: Tommy Recio ED Provider: Gerardo Randall Home Meds and New Rx's Prescriptions: No Action ParaGard T 380A 380 square mm intrauterine device 1 device IY ONCE 0RF Rx Instructions: Inserted 06/07/2019 metronidazole 500 mg tablet 500 mg PO BID Qty: 14 5RF Discharge Instructions Instructions: Polysubstance Abuse (ED), Opioid Use Disorder (ED) Additional Instructions: Please return the emergency department for any worsening symptoms. Please follow-up with substance abuse counselor as scheduled. Medical Decision Making 26-year-old female presents in respiratory arrest, cyanotic apneic, dropped off by partner, 2 mg nasal Narcan administered while extracting patient from the car she did take a spontaneous respiration and then went apneic again, wheeled into resuscitation bay, cyanosis to face chest arms and hands, no spontaneous respiratory effort, BVM initiated, 4 mg nasal and 2 mg IO Narcan administered with almost immediate response, patient began taking spontaneous respirations, color improved greatly with normal saturations, began to interact with staff. Labs were drawn fluids were administered, patient required no further Narcan to keep her mental status and respiratory status normal. Endorses that she snorted what she thought was a Percocet. Labs drawn, patient monitored for several hours, is alert oriented moving all extremities maintaining her airway tolerating secretions no hypoxia or apnea. Patient feels safe at home. Wishes to go home. Will provide substance abuse counseling information. HPI General Date/Time Provider Initiated Documentation: 11/28/21 19:14 . HPI Narrative: 26-year-old female history of substance abuse, presents unresponsive apneic cyanotic, dropped off by partner, history and physical limited by patient's mental status and respiratory status. Related Data Home Medications Medication Instructions Recorded Confirmed copper 380 square mm intrauterine 1 device IY ONCE 08/07/19 08/20/20 device (ParaGard T 380A) metronidazole 500 mg tablet 500 mg PO BID #14 tab 08/25/21 Previous Rx's Medication Instructions Recorded metronidazole 500 mg tablet 500 mg PO BID #14 tab 08/25/21 Allergies Allergy/AdvReac Type Severity Reaction Status Date / Time codeine AdvReac Intermediate Agitation Unverified 07/03/21 09:21 General Stated Complaint: OD/Poison DIONNA: 1 Review of Systems Narrative: Unable to obtain due to apnea unresponsive status PFSH All Active Problems (Updated 11/28/21 @ 22:36 by Gerardo Randall MD) Opioid overdose (Acute) Bacterial vaginosis (Acute) recurrent Vaginal discharge (Acute) History of trichomonal vaginitis (Acute) History of chlamydia infection (Acute) PCB (post coital bleeding) (Acute) Presence of of copper intrauterine contraceptive device (Acute) IUD surveillance (Acute) Encounter for insertion of ParaGard IUD (Acute) control counseling (Acute) Encounter for visit (Acute) History of tobacco abuse (Chronic) First trimester (Acute) 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 (Acute) History of drug abuse in remission (Acute) Groin pain, chronic, right (Acute 04/03/15) Renal colic, bilateral (Acute 01/01/14) Medical History (Updated 11/28/21 @ 22:36 by Gerardo Randall MD) 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 Delivery normal Oral contraceptive pill surveillance (10/04/14) Family History Mother Hypertension Father Multiple sclerosis Maternal Grandmother Diabetes Hypertension Other Heart disease Social History Smoking/Tobacco Use Status: Current every day Tobacco Type: cigarettes Counseling given: provider counseling Smoking risk assessment performed?: Yes Alcohol Intake: former Drug use: Never Substance use type: former substance user Date of last use: 2 years, heroin, painkillers and IV drugs Do you feel safe at home: Yes Do you feel safe in your relationship?: Yes Female Reproductive History Menstrual control method: none History History 3 Para 2 Hx # Term Pregnancies 2 Multiple births 0 Hx # Pregnancies 0 Ectopic pregnancies 0 AB induced 1 Hx Number of Living Children 2 AB spontaneous 0 Past Pregnancies Del. Date GA/Weeks # Outcome Route Wgt Sex Labor Lgth Anesthes ia Location [facility] 02/27/14 40 No Successful vaginal 4025.632 g Female 10 [place] 03/15/19 38 No Successful vaginal 3061.748 g Female Delivery Date: 02/27/14 Last Updated by: Bia Floyd wanted an epidural but was told it was too late Delivery Date: 03/15/19 Last Updated by: Mercedes Her LPN delivered @ [facility] Exam Narrative Exam Narrative: Physical Examination General: In respiratory arrest, apneic, cyanotic HEENT: normocephalic, atraumatic; Neck: supple, trachea midline; full ROM Chest: normal to inspection Respiratory: Apneic Cardiac: regular rate, regular rhythm, S1S2 intact, no murmurs rubs or gallops GI: abdomen soft, non-tender, non-distended; no palpable mass or hepatosplenomegaly Skin: Cyanosis of face and upper extremities Neuro: Comatose no spontaneous movement Extremities: Cyanosis of fingers hands and portions of arms Course Vital Signs Vital signs: Vital Signs Pulse 81 11/28/21 19:07 Respiratory Rate 30 H 11/28/21 19:07 Blood Pressure 186/80 H 11/28/21 19:07 Pulse Oximetry 99 11/28/21 19:07 Temperature 36.1 C L 11/28/21 19:08 Temperature Source Tympanic 11/28/21 19:08 Pulse 59 L 11/28/21 22:15 Pulse 87 11/28/21 22:15 Respiratory Rate 13 11/28/21 22:15 Respiratory Effort 11/28/21 19:14 Respiratory Depth Normal 11/28/21 19:14 Respiratory Pattern Normal 11/28/21 19:14 Blood Pressure 126/72 11/28/21 22:15 Blood Pressure Mean 84 11/28/21 22:15 Blood Pressure Position Supine 11/28/21 19:08 Pulse Oximetry 96 11/28/21 22:10 Oxygen Delivery Method Room Air 11/28/21 19:08 Oxygen Flow Rate 0 11/28/21 19:08 Pain Level 0 11/28/21 19:08 Lab/Test Results Lab/Test Results: Laboratory Tests Range/Units 11/28/21 11/28/21 11/28/21 19:10 19:10 19:44 WBC (4.4-10.8) 10^3/uL 8.54 RBC (3.93-5.22) 10^6/uL 5.02 Hgb (11.2-15.7) g/dL 15.5 Hct (36.0-46.0) % 44.1 MCV (80-95) fL 87.8 MCH (27.0-33.0) pg 30.9 MCHC (32.0-36.0) % 35.1 RDW (11.7-14.6) % 11.8 Plt Count (130-400) 10^3/uL 341 MPV (8.0-11.0) fL 10.6 Immature Gran % 0.1 Neutrophils % 54.6 Lymphocytes % 34.9 Monocytes % 7.6 Eosinophils % 2.1 Basophils % 0.7 Nucleated RBC % % 0 Absolute Neutrophils (1.2-6.7) 10^3/uL 4.66 Absolute Lymphocytes (1.2-3.4) 10^3/uL 2.98 Absolute Monocytes (0.1-0.8) 10^3/uL 0.65 Absolute Eosinophils (0.0-0.7) 10^3/uL 0.18 Absolute Basophils (0.0-0.2) 10^3/uL 0.06 Sodium (136-145) mmol/L 137 Potassium (3.5-5.1) mmol/L 3.3 L Chloride (98-107) mmol/L 103 Carbon Dioxide (21.0-32.0) mmol/L 19.7 L Anion Gap (3-11) mmol/L 14.3 H BUN (7-18) mg/dL 10 Creatinine (0.55-1.02) mg/dL 1.1 H Estimated GFR/1.73 m2 (mL/min/1.73m2) 59.14 Glucose (74-106) mg/dL 201 H Calcium (8.5-10.1) mg/dL 9.3 Total Bilirubin (0.2-1.0) mg/dL 0.6 AST (15-37) U/L 16 ALT (14-59) U/L 15 Alkaline Phosphatase (46-116) U/L 72 Total Protein (6.4-8.2) g/dL 8.0 Albumin (3.4-5.0) g/dL 4.0 Urine Color (Yellow) Yellow Urine Clarity (Clear) Clear Urine pH (5-8) 7.0 Ur Specific [place] (1.005-1.025) 1.020 Urine Protein (Negative) mg/dL Trace H Urine Ketones (Negative) mg/dL Negative Urine Blood (Negative) Negative Urine Nitrite (Negative) Negative Urine Bilirubin (Negative) Negative Urine Urobilinogen (Up TO 0.2) EU/dL 0.2 Ur Leukocyte Esterase (Negative) Negative Urine RBC (0-2) HPF 0-2 Urine WBC (0-5) HPF Negative Ur Epithelial Cells (Negative) HPF Few Urine Crystals (Negative) HPF Negative Urine Bacteria (Negative) HPF Negative Urine Casts (Negative) LPF 3-5 Hyaline Urine Mucus (Negative) Trace Ur Culture Indicated? No Urine Glucose (Negative) mg/dL Negative Urine Opiates Screen (Negative) Urine Methadone Screen (Negative) Ur Barbiturates Screen (Negative) Ur Tricyclics Screen (Negative) Ur Amphetamines Screen (Negative) U Benzodiazepines Scrn (Negative) Urine Cocaine Screen (Negative) Ur THC Screen (Negative) Range/Units 11/28/21 19:44 WBC (4.4-10.8) 10^3/uL RBC (3.93-5.22) 10^6/uL Hgb (11.2-15.7) g/dL Hct (36.0-46.0) % MCV (80-95) fL MCH (27.0-33.0) pg MCHC (32.0-36.0) % RDW (11.7-14.6) % Plt Count (130-400) 10^3/uL MPV (8.0-11.0) fL Immature Gran % Neutrophils % Lymphocytes % Monocytes % Eosinophils % Basophils % Nucleated RBC % % Absolute Neutrophils (1.2-6.7) 10^3/uL Absolute Lymphocytes (1.2-3.4) 10^3/uL Absolute Monocytes (0.1-0.8) 10^3/uL Absolute Eosinophils (0.0-0.7) 10^3/uL Absolute Basophils (0.0-0.2) 10^3/uL Sodium (136-145) mmol/L Potassium (3.5-5.1) mmol/L Chloride (98-107) mmol/L Carbon Dioxide (21.0-32.0) mmol/L Anion Gap (3-11) mmol/L BUN (7-18) mg/dL Creatinine (0.55-1.02) mg/dL Estimated GFR/1.73 m2 (mL/min/1.73m2) Glucose (74-106) mg/dL Calcium (8.5-10.1) mg/dL Total Bilirubin (0.2-1.0) mg/dL AST (15-37) U/L ALT (14-59) U/L Alkaline Phosphatase (46-116) U/L Total Protein (6.4-8.2) g/dL Albumin (3.4-5.0) g/dL Urine Color (Yellow) Urine Clarity (Clear) Urine pH (5-8) Ur Specific [place] (1.005-1.025) Urine Protein (Negative) mg/dL Urine Ketones (Negative) mg/dL Urine Blood (Negative) Urine Nitrite (Negative) Urine Bilirubin (Negative) Urine Urobilinogen (Up TO 0.2) EU/dL Ur Leukocyte Esterase (Negative) Urine RBC (0-2) HPF Urine WBC (0-5) HPF Ur Epithelial Cells (Negative) HPF Urine Crystals (Negative) HPF Urine Bacteria (Negative) HPF Urine Casts (Negative) LPF Urine Mucus (Negative) Ur Culture Indicated? Urine Glucose (Negative) mg/dL Urine Opiates Screen (Negative) Negative Urine Methadone Screen (Negative) Negative Ur Barbiturates Screen (Negative) Negative Ur Tricyclics Screen (Negative) Negative Ur Amphetamines Screen (Negative) Negative U Benzodiazepines Scrn (Negative) Negative Urine Cocaine Screen (Negative) Positive A Ur THC Screen (Negative) Negative POC- Test(urine) Negative
== END 2021-11-28 22:58 | disposition home or self-care (01) ==
PROVIDERS: Emergency Provider Emergency Medicine; PCP Nurse Practitioner Family
DX: T40.2X1A Poisoning by other opioids, accidental (unintentional), initial encounter (principal); R09.2 Respiratory arrest
CPT/HCPCS: 80053; 80307; 81025; 93005; 96361; 96374; 99284; 81003; 81015; 85025; 93010; J2310; J2405